=== PATIENT | male | born 1970 | race Two or more races ===

== ENCOUNTER 2018-05-31 11:45 | Observation (INO) ==
[2018-05-31] MEDS ORDERED: Acetaminophen 325 MG Tablet PO PRN (18:27)
--- NOTE | 2018-05-31 18:37 | P.HP ---
[facility] UNKNOWN Chief Complaint: Chest pain shortness of breath since History of Present Illness: Patient complains of chest pain shortness of breath fatigue dizziness since . Patient states that he is admitted to the [facility] on and kept overnight and discharged. Patient states he was seen by cardiology over there cardiac enzymes were unremarkable EKG no acute changes and was discharged. Returns today because of persistent chest pains and shortness of breath with dyspnea on exertion states he took 3 nitros without relief this morning. He has a long-standing history of coronary disease with 2 stents as well as diabetes hypertension hyperlipidemia. Denies cigarette consumption. Patient's workup in the emergency room in [place] EKG showed no acute changes, initial set cardiac enzymes unremarkable, because he was short of breath they did a d-dimer which also was unremarkable. Patient now being admitted with the continue chest pain shortness of breath symptoms now going on for days will have our cardiology service evaluate patient. Of note patient was started on metoprolol from his admission on but he has not filled it at this point. He also was given Nitropaste in the emergency room this will be continued. For now I will continue his Plavix and aspirin his Lovenox and await cardiac evaluation. Patient denies any nausea vomiting, does have a history of sleep apnea and has a CPAP machine at home. - Diagnosis (1) Acute coronary insufficiency syndrome (2) Presence of stent in coronary artery in patient with coronary artery disease Review of Systems All other systems reviewed negative except as stated in HPI [facility] - History History Provided By: Patient, Family Member - Medical History Medical History: Medical History (Last Reviewed 05/31/18 @ 18:34 by Randall Lama MD) Anxiety BPH (benign prostatic hyperplasia) CAD (coronary artery disease) Chest pain HTN (hypertension) Hyperlipidemia Kidney stones Mood disorder - Surgical History Surgical History: Surgical History (Last Reviewed 05/31/18 @ 18:34 by Randall Lama MD) History of extraction of renal calculus History of loop recorder Hx of cardiac cath Hx of heart artery stent Hx of hernia repair - Tobacco History Second Hand Smoke Exposure: No Smoking Status: Never smoker - Alcohol History How Often Do You Have a Drink Containing Alcohol: Never - Substance Use History Substance History: No History of Abuse Medications and Allergies Active Medications: Active Medications Acetaminophen (Tylenol) 650 mg PO Q4H PRN PRN Reason: Temp > 100.4 Albuterol (Ventolin Hfa Inh) 1 puff INH Q4-6H PRN PRN Reason: Shortness Of Breath Or Wheezing Aspirin (Ecotrin) 81 mg PO DAILY [facility] Clopidogrel Bisulfate (Plavix) 75 mg PO DAILY [facility] Enoxaparin Sodium (Lovenox Inj) 40 mg SQ Q24H [facility] Hydroxyzine HCl (Atarax) 10 mg PO TID-QID PRN PRN Reason: Anxiety Lamotrigine (Lamictal) 50 mg PO DAILY [facility] Lisinopril (Prinivil) 5 mg PO HS [facility] Metoprolol Tartrate (Lopressor) 25 mg PO BID [facility] Nitroglycerin (Nitrostat Sl (Override)) 0.4 mg SL Q5-15M PRN PRN Reason: Chest Pain Non-Formulary Medication (Rosuvastatin [Rosuvastatin]) 20 mg PO HS [facility] Ondansetron HCl (Zofran Inj) 4 mg IV.PUSH Q6H PRN PRN Reason: NAUSEA OR VOMITING Ranolazine (Ranexa) 1,000 mg PO BID [facility] Tamsulosin HCl (Flomax) 0.4 mg PO DAILY [facility] Trazodone HCl (Desyrel) 100 mg PO HS [facility] Allergies Allergy/AdvReac Type Severity Reaction Status Date / Time shellfish derived Allergy Swelling Verified 05/31/18 12:16 of Lip/Tongue/Throat Home Medications Medication Instructions Recorded Confirmed Type albuterol sulfate [ProAir HFA] 1 puff INHALATION Q4-6H PRN 05/31/18 05/31/18 History aspirin 81 mg PO DAILY 05/31/18 05/31/18 History clopidogrel [Plavix] 75 mg PO DAILY 05/31/18 05/31/18 History hydroxyzine HCl 10 mg PO TID-QID PRN 05/31/18 05/31/18 History lamotrigine 50 mg PO DAILY 05/31/18 05/31/18 History lisinopril 5 mg PO HS 05/31/18 05/31/18 History metoprolol tartrate 25 mg PO BID 05/31/18 05/31/18 History nitroglycerin 0.4 mg SUBLINGUAL Q5-15M PRN 05/31/18 05/31/18 History ranolazine [Ranexa] 1,000 mg PO BID 05/31/18 05/31/18 History rosuvastatin 20 mg PO HS 05/31/18 05/31/18 History tamsulosin [Flomax] 0.4 mg PO DAILY 05/31/18 05/31/18 History trazodone 100 mg PO HS 05/31/18 05/31/18 History Exam Vital signs: Vital Signs 05/31/18 15:45 Pulse Rate 60 Respiratory Rate 18 Blood Pressure 113/75 Pulse Oximetry 95 Intake & Output 05/30/18 05/31/18 05/31/18 18:59 06:59 18:59 Weight 99.79 kg Other: Weight On Admission 99.79 kg Narrative: GENERAL: SKIN: Warm and dry. HEAD: Normocephalic. EYES: No scleral icterus. No injection or drainage. NECK: Supple, trachea midline. No JVD or lymphadenopathy. CARDIOVASCULAR: Regular rate and rhythm without murmurs, gallops, or rubs. RESPIRATORY: Breath sounds equal bilaterally. No accessory muscle use. GASTROINTESTINAL: Abdomen soft, non-tender, nondistended. MUSCULOSKELETAL: No cyanosis, or edema. BACK: Nontender without obvious deformity. No CVA tenderness. Caprini VTE Risk Assessment Caprini VTE Risk Assessment: Moderate/High Risk (score >= 2) Caprini Risk Assessment Model: Point Value = 1 Point Value = 2 Point Value = 3 Point Value = 5 Age 41-60 Minor surgery BMI > 25 kg/m2 Swollen legs Varicose veins or History of unexplained or recurrent spontaneous Oral contraceptives or hormone replacement Sepsis (< 1 month) Serious lung disease, including pneumonia (< 1 month) Abnormal pulmonary function Acute myocardial infarction Congestive heart failure (< 1 month) History of inflammatory bowel disease Medical patient at bed rest Age 61-74 Arthroscopic surgery Major open surgery (> 45 min) Laparoscopic surgery (> 45 min) Malignancy Confined to bed (> 72 hours) Immobilizing plaster cast Central venous access Age >= 75 History of VTE Family history of VTE Factor V Leiden Prothrombin [id number] Lupus anticoagulant Anticardiolipin antibodies Elevated serum homocysteine Heparin-induced thrombocytopenia Other congenital or acquired thrombophilia Stroke (< 1 month) Elective arthroplasty Hip, pelvis, or leg fracture Acute spinal cord injury (< 1 month) Prophylaxis Regimen: Total Risk Factor Score Risk Level Prophylaxis Regimen 0-1 Low Early ambulation 2 Moderate Order ONE of the following: *Sequential Compression Device (SCD) *Heparin 5000 units SQ BID 3-4 Higher Order ONE of the following medications: *Heparin 5000 units SQ TID *Enoxaparin/Lovenox 40 mg SQ daily (WT < 150 kg, CrCl > 30 mL/min) *Enoxaparin/Lovenox 30 mg SQ daily (WT < 150 kg, CrCl > 10-29 mL/min) *Enoxaparin/Lovenox 30 mg SQ BID (WT < 150 kg, CrCl > 30 mL/min) AND/OR *Sequential Compression Device (SCD) 5 or more Highest Order ONE of the following medications: *Heparin 5000 units SQ TID (Preferred with Epidurals) *Enoxaparin/Lovenox 40 mg SQ daily (WT < 150 kg, CrCl > 30 mL/min) *Enoxaparin/Lovenox 30 mg SQ daily (WT < 150 kg, CrCl > 10-29 mL/min) *Enoxaparin/Lovenox 30 mg SQ BID (WT < 150 kg, CrCl > 30 mL/min) AND *Sequential Compression Device (SCD) Assessment and Plan - Assessment (1) Acute coronary insufficiency syndrome Code(s): I20.0 - Unstable angina Status: Acute Plan: Plan we will admit for chest pain shortness of breath workup cardiac consult serial troponin serial EKG (2) Presence of stent in coronary artery in patient with coronary artery disease Code(s): I25.10 - Atherosclerotic heart disease of [place] coronary artery without angina pectoris; Z95.5 - Presence of coronary angioplasty implant and graft Status: Acute Plan: Continue current medications patient states that they told him his blood pressure was a little on the low side and the other hospital follow that as well - Plan Further plan as case develops Code Status: Full Discussed Condition With: Patient and
[2018-05-31] MEDS: Enoxaparin Inj 40 MG/0.4 ML Syringe SQ SCH (19:44)
[2018-05-31] MEDS: traZODone 100 MG Tablet PO SCH (20:59)
[2018-05-31] MEDS: Senna/Docusate Sodium 8.6/50 MG Tablet PO SCH (20:59)
[2018-05-31] MEDS: Metoprolol Tartrate 25 MG Tablet PO SCH (20:59)
[2018-05-31] MEDS: Lisinopril 5 MG Tablet PO SCH (20:59)
[2018-05-31] MEDS: Ranolazine 500 MG 12HR ER Tablet PO SCH (21:00)
--- NOTE | 2018-06-01 07:37 | P.CONCA ---
History of Present Illness Primary Care Provider: UNKNOWN Chief Complaint: Chest pain shortness of breath since History of Present Illness: 47-year-old male with CAD, HTN, HLD, DM, JEFF on CPAP, recurrent syncope. Patient reports that since he has been having episodes of chest heaviness, shortness of breath, nausea, fatigue/sleeping more, dizziness and episodes of near syncope. He went to the hospital in [place] on for this reports workup was negative except he was told he was wheezing some and was discharged. Symptoms persisted so he went to the [facility] the ED. troponin 0 0.02 x 3, EKG with NSR and no ischemic changes, d-dimer within normal limits, chest x-ray with no acute process. Telemetry overnight with no significant arrhythmia noted. He reports PCI x2 in 2016. Reports normal left heart catheterization in January in [place]. He reports loop recorder placed for recurrent syncope 10/[address] Nunez. Patient reports that he "just does not feel right" and wants to know what is going on. He reports his plan is to establish with Dr. Villa with cardiology in [place], but has not seen him yet. Review of Systems All other systems reviewed negative except as stated in HPI [facility] - History History Provided By: Patient, Medical Record - Medical History Medical History: Medical History (Last Reviewed 05/31/18 @ 18:34 by Randall Lama MD) Anxiety BPH (benign prostatic hyperplasia) CAD (coronary artery disease) Chest pain HTN (hypertension) Hyperlipidemia Kidney stones Mood disorder - Surgical History Surgical History: Surgical History (Last Reviewed 05/31/18 @ 18:34 by Randall Lama MD) History of extraction of renal calculus History of loop recorder Hx of cardiac cath Hx of heart artery stent Hx of hernia repair - Tobacco History Second Hand Smoke Exposure: No Smoking Status: Never smoker - Alcohol History How Often Do You Have a Drink Containing Alcohol: Never - Substance Use History Substance History: No History of Abuse - Travel History Recent Travel in the [facility] Within the Last 8 Weeks: No Recent Travel Out of the Country Within the Last 8 Weeks: No Medications and Allergies Allergies Allergy/AdvReac Type Severity Reaction Status Date / Time shellfish derived Allergy Swelling Verified 05/31/18 12:16 of Lip/Tongue/Throat Home Medications Medication Instructions Recorded Confirmed Type albuterol sulfate [ProAir HFA] 1 puff INHALATION Q4-6H PRN 05/31/18 05/31/18 History aspirin 81 mg PO DAILY 05/31/18 05/31/18 History clopidogrel [Plavix] 75 mg PO DAILY 05/31/18 05/31/18 History hydroxyzine HCl 10 mg PO TID-QID PRN 05/31/18 05/31/18 History lamotrigine 50 mg PO DAILY 05/31/18 05/31/18 History lisinopril 5 mg PO HS 05/31/18 05/31/18 History metoprolol tartrate 25 mg PO BID 05/31/18 05/31/18 History nitroglycerin 0.4 mg SUBLINGUAL Q5-15M PRN 05/31/18 05/31/18 History ranolazine [Ranexa] 1,000 mg PO BID 05/31/18 05/31/18 History rosuvastatin 20 mg PO HS 05/31/18 05/31/18 History tamsulosin [Flomax] 0.4 mg PO DAILY 05/31/18 05/31/18 History trazodone 100 mg PO HS 05/31/18 05/31/18 History Active Medications: Active Medications Acetaminophen (Tylenol) 650 mg PO Q4H PRN PRN Reason: Temp > 100.4 Albuterol (Ventolin Hfa Inh) 1 puff INH Q4H PRN PRN Reason: Shortness Of Breath Or Wheezing Aspirin (Ecotrin) 81 mg PO DAILY [facility] Atorvastatin Calcium (Lipitor) 40 mg PO HS [facility] Last Admin: 05/31/18 20:59 Dose: 40 mg Clopidogrel Bisulfate (Plavix) 75 mg PO DAILY [facility] Enoxaparin Sodium (Lovenox Inj) 40 mg SQ Q24H [facility] Last Admin: 05/31/18 19:44 Dose: 40 mg Hydroxyzine HCl (Atarax) 10 mg PO QID PRN PRN Reason: Anxiety Lamotrigine (Lamictal) 50 mg PO DAILY [facility] Lisinopril (Prinivil) 5 mg PO HS [facility] Last Admin: 05/31/18 20:59 Dose: 5 mg Metoprolol Tartrate (Lopressor) 25 mg PO BID [facility] Last Admin: 05/31/18 20:59 Dose: 25 mg Nitroglycerin (Nitrostat Sl) 0.4 mg SL Q5M PRN PRN Reason: CHEST PAIN Last Admin: 05/31/18 19:44 Dose: 0.4 mg Nitroglycerin (Nitro-Bid 2% Oint) 1 inch TOPICAL Q6HR [facility] Last Admin: 06/01/18 06:51 Dose: 1 inch Ondansetron HCl (Zofran Inj) 4 mg IV.PUSH Q6H PRN PRN Reason: NAUSEA OR VOMITING Ranolazine (Ranexa) 1,000 mg PO BID [facility] Last Admin: 05/31/18 21:00 Dose: 1,000 mg Senna/Docusate Sodium (Cheryl-Colace) 1 tab PO BID [facility] Last Admin: 05/31/18 20:59 Dose: 1 tab Sodium Chloride (Ns Flush) 2 ml IV.FLUSH BID [facility] Last Admin: 05/31/18 20:59 Dose: 2 ml Sodium Chloride (Ns Flush) 2 ml IV.FLUSH PRN PRN PRN Reason: FLUSH AFTER USING IV ACCESS Tamsulosin HCl (Flomax) 0.4 mg PO DAILY [facility] Trazodone HCl (Desyrel) 100 mg PO HS [facility] Last Admin: 05/31/18 20:59 Dose: 100 mg Exam Vital signs: Vital Signs 05/31/18 15:45 05/31/18 18:35 05/31/18 20:00 Temperature 97.5 F L Pulse Rate 60 71 68 Respiratory Rate 18 12 Blood Pressure 113/75 96/61 L Pulse Oximetry 95 96 05/31/18 23:18 06/01/18 04:30 06/01/18 07:18 Temperature 97.6 F 97.7 F 97.6 F Pulse Rate 58 L 57 L 66 Respiratory Rate 16 18 16 Blood Pressure 99/54 L 115/65 109/66 Pulse Oximetry 98 98 97 Intake & Output 05/31/18 06/01/18 06/01/18 18:59 06:59 18:59 Output Total 350 / 350 Balance -350 / -350 Weight 220 lb Output: Urine 350 / 350 Other: Date of Last Bowel Movement 05/31/18 Weight On Admission 220 lb Narrative: GENERAL: Well-developed well-nourished. In no acute distress. NECK: No carotid bruits. No JVD. CARDIOVASCULAR: Regular rate and rhythm. No murmur appreciated. RESPIRATORY: No accessory muscle use. Clear to auscultation. Breath sounds equal bilaterally. MUSCULOSKELETAL: No clubbing or cyanosis. No edema. NEUROLOGICAL: Awake and alert. Normal speech. Results Cardiac Enzymes 05/31/18 06/01/18 Range/Units 19:39 02:40 Troponin I Less than 0.02 L Less than 0.02 L (0.02-0.05) ng/mL Intake and Output 05/31/18 06/01/18 06/01/18 22:59 06:59 14:59 Output Total 350 / 350 Balance -350 / -350 Output: Urine 350 / 350 Other: Date of Last Bowel Movement 05/31/18 Weight 220 lb Weight On Admission 220 lb Assessment and Plan - Plan 47-year-old male with CAD, HTN, HLD, DM, JEFF on CPAP, recurrent syncope. Patient reports that since he has been having episodes of chest heaviness, shortness of breath, nausea, fatigue/sleeping more, dizziness and episodes of near syncope Atypical chest pain with history of CAD: EKG and troponins with no ischemic changes. Reportedly recent normal LHC. Check Lexiscan to evaluate for any significant ischemia. Continue aspirin, Plavix. Near syncope: We will have [employer] interrogate loop recorder. Check updated echo. Discussed Condition With: Patient, RN, hospitalist, Dr. Rivera - Attending Attestation stress test personally reviewed. Appears to be low risk study guideline directed medical therapy DC home FU PCP
[2018-06-01] MEDS ORDERED: Regadenoson Inj 0.4 MG/5 ML Syringe IV.PUSH ONE (07:38)
[2018-06-01] MEDS: Senna/Docusate Sodium 8.6/50 MG Tablet PO SCH ×2 (08:04→23:58)
[2018-06-01] MEDS: Ranolazine 500 MG 12HR ER Tablet PO SCH ×2 (08:04→23:59)
[2018-06-01] MEDS: lamoTRIgine 25 MG TABLET PO SCH (08:05)
--- NOTE | 2018-06-01 08:16 | P.PNIM ---
Subjective Interval history: Patient denies any chest pain currently but states that he did have some overnight He reports that he has had increased lethargy, intermittent chest pain, dyspnea , dizziness and just "not feeling right" for the last 6 days. He states that he has JEFF and has been on CPAP for the last year, no other health related changes. He reports that he was prescribed Metoprolol last week when he was in the hospital in [place] but had not started taking it prior to this admission. Pt denies any palpitations or diaphoresis, but has had nausea intermittently as well. He feels that the symptoms are somewhat similar to symptoms he had prior to his cardiac cath and stent placement in 2017 Physical Exam Vital signs: Last Vital Signs Temp 97.6 F 06/01/18 07:18 Pulse 66 06/01/18 07:18 Resp 16 06/01/18 07:18 BP 109/66 06/01/18 07:18 Pulse Ox 97 06/01/18 07:18 Narrative: General: NAD, AAOx3 Chest: CTA Cardiac: Regular Abd: +BS, soft ND/NT Ext: No edema Assessment and Plan Assessment (1) Atypical chest pain: Code(s): R07.89 - Other chest pain Status: Acute (2) Dizziness: Code(s): R42 - Dizziness and giddiness Status: Acute (3) JEFF (obstructive sleep apnea): Code(s): G47.33 - Obstructive sleep apnea (adult) (pediatric) Status: Chronic (4) Anxiety: Code(s): F41.9 - Anxiety disorder, unspecified Status: Chronic (5) Presence of stent in coronary artery in patient with coronary artery disease : Code(s): I25.10 - Atherosclerotic heart disease of [place] coronary artery without angina pectoris; Z95.5 - Presence of coronary angioplasty implant and graft Status: Chronic Plan Atypical chest pain Hx of CAD s/p stent in 2017 - Pt is a 47 y/o male with CAD, HTN, HLD, JEFF on CPAP, and recurrent syncope/ near syncope. He presented to the ED at [place] on 05/31/18 with complaints of having episodes of chest heaviness, shortness of breath, nausea, fatigue/ sleeping more, dizziness and episodes of near syncope since 05/28/18. He went to the hospital in [place] on 05/28/18 with these complaints and the workup was reportedly negative except he was told he was wheezing some and was discharged. He was prescribed Metoprolol 25mg daily at that time but has not started taking that yet. Symptoms persisted so he went to the [place] ED on 05/31 and was transferred to [facility] for further cardiac workup. - Pt previously had LHC with PCI x2 in 2016 and he had a LHC in 08/2017 which at that time noted moderately severe left ventricular diastolic dysfunction, EF 40- 45%, widely patent stents in the LAD with minimal residual narrowing. The Left main, circumflex, and RCA are free of significant disease. - Reviewed 2D echo (01/06/2018) which noted estimated EF 60-65% and diastolic dysfunction. - He also has a loop recorder which was reportedly placed for recurrent syncope 10/[address] Nunez. - Troponin I 0.02 x 3, EKG with NSR and no ischemic changes, d-dimer within normal limits, chest x-ray with no acute process. - Telemetry overnight with no significant arrhythmia noted. - Cardiology is following. - Pt is planned for Lexiscan today - Nitro paste Q6H - Hold Metoprolol for now as BP is low normal and this was a new medication added to his regiment recently - Cont. ASA/Plavix/Statin/RENA/Ranexa - Supportive care - DVT prophylaxis with Lovenox Dizziness Hx of recurrent syncope/near syncope - Pt had loop recorder placed in 10/2017 for recurrent syncopal episodes - Interrogation of loop recorder is ordered - 2D echo was reviewed JEFF on CPAP - Pt reportedly diagnosed with JEFF about 1 year ago - He uses his CPAP daily per the pt - Cont. this while at the hospital Diet controlled DM - Diabetic diet - Hgb A1C 5.8% Anxiety - Cont. home meds ADDENDUM: - Lexiscan was reviewed by Cardiology and felt to be a low risk study - Loop recorder interrogated and there were no noted events - Pt still having dizziness and low BP - Stop the Nitro paste - Parameters on the Metoprolol - Monitor today and if BP is stable and symptoms improve anticipate d/c home in AM Attending Attestation The exam, history, and the medical decision-making described in the above note were completed with the assistance of the mid-level provider. I reviewed and agree with the findings presented. I attest that I had a [id number] encounter with the patient on the same day, and personally performed and documented my assessment and findings in the medical record. Patient examined. Assessment and plan formulated with Heidy Tejada PA-C. I agree with the above. Progress Note: Quality VTE Deep Vein Thrombosis/Pulmonary Embolism Present on Admission: No
--- NOTE | 2018-06-01 09:54 | NM ---
EXAM DATE: 06/01/2018 9:46 AM EST AGE/SEX: 47 years / Male INDICATIONS:Angina. Coronary artery disease Substernal chest pain. CLINICAL DATA: This is the patient's initial encounter. Patient reports that signs and symptoms have been present for 1 day and indicates a pain score of 4/10. MEDICAL/SURGICAL HISTORY: Hypertension. Coronary artery stent. Loop recorder. COMPARISON: . DOSE: 11 mCi Tc 99m Myoview at rest 35 mCi [id number] at stress 0.4 mg Lexiscan STRESS SYMPTOMS: Dyspnea, nausea and headache. EJECTION FRACTION: 57 % TECHNIQUE: The patient underwent pharmacologic stress with infusion of prescribed dose. Continuous ECG tracing was monitored during stress. Gated SPECT imaging was performed after stress and conventi onal SPECT imaging was performed at rest. The examination was performed on a SPECT/CT scanner, both attenuation and non-corrected datasets were reviewed. FINDINGS: Distribution: The maximum perfused segment at stress is in the lateral wall. Perfusion Study: There is mild decreased activity seen in the mid septal and inferior wall and at t he basilar anterior wall on the stress images compared to the rest images. Gated Study: There are intact wall motion and wall thickening without hypokinetic or dyskinetic segm ents. The ejection fraction is calculated at 57%. RISK CATEGORY: Intermediate (1-3 % Annual Mortality Rate) CONCLUSION: Possible mild ischemia in the mid septal and inferior ambrose and basilar anterior wall. Electronically signed by: Sonu Mays MD Board Certified Radiologist 06/01/2018 9:53 AM EST
[2018-06-01] MEDS: Metoprolol Tartrate 25 MG Tablet PO SCH ×4 (10:07→23:58)
--- NOTE | 2018-06-01 12:11 | ECG ---
Date Performed: 05/31/2018 Time Performed: 16:13:27 PTAGE: 47 years EKG: SINUS BRADYCARDIA BORDERLINE ECG NO PREVIOUS TRACING DOCTOR: Clinton Suárez Interpretating Date/Time 06/01/2018 12:09:11
--- NOTE | 2018-06-01 12:22 | ECG ---
Date Performed: 06/01/2018 Time Performed: 04:28:57 PTAGE: 47 years EKG: SINUS BRADYCARDIA BORDERLINE ECG Since the PREVIOUS TRACING , no significant change noted PREVIOUS TRACIN05/31/2018 18.39 DOCTOR: Clinton Suárez Interpretating Date/Time 06/01/2018 12:15:52
--- NOTE | 2018-06-01 12:22 | ECG ---
Date Performed: 05/31/2018 Time Performed: 18:39:59 PTAGE: 47 years EKG: Sinus rhythm NORMAL ECG Since the PREVIOUS TRACING , no significant change noted PREVIOUS TRACIN05/31/2018 16.13 DOCTOR: Clinton Suárez Interpretating Date/Time 06/08/2018 18:23:13
[2018-06-01 16:51] LABS: Free T4 (Free Thyroxine) 0.85 ng/dL (0.76-1.46); Thyroid Stimulating Hormone 0.682 uIU/mL (0.358-3.740)
--- NOTE | 2018-06-01 17:35 | ECHRPT ---
Indication: Syncope CONCLUSIONS The left ventricular systolic function is low normal with an estimated ejection fraction in the rang e of 50- 55%. Trace mitral valve regurgitation. There is mild tricuspid valve regurgitation. BP: / HR: Rhythm: MEASUREMENTS (Male / Female) Normal Values Technical Quality:Fair 2D ECHO LV Diastolic Diameter PLAX 4.4 cm 4.2 - 5.9 / 3.9 - 5.3 cm LV Systolic Diameter PLAX 2.8 cm IVS Diastolic Thickness 0.9 cm 0.6 - 1.0 / 0.6 - 0.9 cm LVPW Diastolic Thickness 0.9 cm 0.6 - 1.0 / 0.6 - 0.9 cm LV Relative Wall Thickness 0.4 RV Internal Dim ED PLAX 3.5 cm LVOT Diameter 2.1 cm Aortic Root Diameter 2.8 cm LA Systolic Diameter LX 3.8 cm 3.0 - 4.0 / 2.7 - 3.8 cm DOPPLER AV Peak Velocity 92.1 cm/s AV Peak Gradient 3.4 mmHg LVOT Peak Velocity 74.5 cm/s LVOT Peak Gradient 2.2 mmHg AV Area Cont Eq pk 2.8 cm Mitral E Point Velocity 49.4 cm/s Mitral A Point Velocity 44.4 cm/s Mitral E to A Ratio 1.1 LV E' Lateral Velocity 13.0 cm/s Mitral E to LV E' Lateral Ratio 3.8 LV E' Septal Velocity 6.4 cm/s Mitral E to LV E' Septal Ratio 7.7 TR Peak Velocity 207.0 cm/s TR Peak Gradient 17.1 mmHg Right Atrial Pressure 10.0 mmHg Pulmonary Artery Systolic Pressu 27.1 mmHg Right Ventricular Systolic Press 27.1 mmHg PV Peak Velocity 86.9 cm/s PV Peak Gradient 3.0 mmHg FINDINGS LEFT VENTRICLE Normal left ventricular size. Wall thickness is normal. The left ventricular systolic function is low normal with an estimated ejection fraction in the rang e of 50- 55%. RIGHT VENTRICLE Normal right ventricular size and systolic function. LEFT ATRIUM The left atrial size is normal. RIGHT ATRIUM The right atrial size is normal. ATRIAL SEPTUM Normal atrial septal thickness without atrial level shunting by limited color doppler interrogation. AORTA The aortic root and proximal ascending aorta are normal in size on limited imaging. MITRAL VALVE Structurally normal mitral valve. Trace mitral valve regurgitation. No mitral valve stenosis. AORTIC VALVE Trileaflet aortic valve. No aortic valve stenosis or regurgitation. TRICUSPID VALVE Structurally normal tricuspid valve. There is mild tricuspid valve regurgitation. The estimated pulmonary arterial pressure is 27 mmHg. PULMONARY VALVE No pulmonary valve regurgitation or stenosis. VESSELS The inferior vena cava is normal in size. PERICARDIUM No pericardial effusion. Ad Salinas DO (Electronically Signed) Final Date:01 June 2018 17:34
[2018-06-01] MEDS: Enoxaparin Inj 40 MG/0.4 ML Syringe SQ SCH (23:12)
[2018-06-01] MEDS: traZODone 100 MG Tablet PO SCH (23:14)
[2018-06-01] MEDS: Lisinopril 5 MG Tablet PO SCH (23:58)
[2018-06-02] MEDS: lamoTRIgine 25 MG TABLET PO SCH (09:07)
[2018-06-02] MEDS: Metoprolol Tartrate 25 MG Tablet PO SCH (09:07)
[2018-06-02] MEDS: Ranolazine 500 MG 12HR ER Tablet PO SCH (09:07)
[2018-06-02] MEDS: Senna/Docusate Sodium 8.6/50 MG Tablet PO SCH (09:08)
--- NOTE | 2018-06-02 09:35 | P.PNIM ---
Subjective Interval history: Pt reports that he is feeling better today No further dizziness He slept better last night using oxygen at night He reports that he does use his CPAP at home but that he is bothered by it because it is not comfortable for him Physical Exam Vital signs: Last Vital Signs Temp 97.7 F 06/02/18 07:44 Pulse 60 06/02/18 07:44 Resp 18 06/02/18 07:44 BP 121/77 06/02/18 07:44 Pulse Ox 98 06/01/18 16:07 Narrative: General: NAD, AAOx3 Chest: CTA Cardiac: Regular Abd: +BS, soft ND/NT Ext: No edema Assessment and Plan Assessment (1) Atypical chest pain: Code(s): R07.89 - Other chest pain Status: Acute (2) Dizziness: Code(s): R42 - Dizziness and giddiness Status: Acute (3) JEFF (obstructive sleep apnea): Code(s): G47.33 - Obstructive sleep apnea (adult) (pediatric) Status: Chronic (4) Anxiety: Code(s): F41.9 - Anxiety disorder, unspecified Status: Chronic (5) Presence of stent in coronary artery in patient with coronary artery disease : Code(s): I25.10 - Atherosclerotic heart disease of [place] coronary artery without angina pectoris; Z95.5 - Presence of coronary angioplasty implant and graft Status: Chronic Plan Atypical chest pain Hx of CAD s/p stent in 2017 - Pt is a 47 y/o male with CAD, HTN, HLD, JEFF on CPAP, and recurrent syncope/ near syncope. He presented to the ED at [place] on 05/31/18 with complaints of having episodes of chest heaviness, shortness of breath, nausea, fatigue/ sleeping more, dizziness and episodes of near syncope since 05/28/18. He went to the hospital in [place] on 05/28/18 with these complaints and the workup was reportedly negative except he was told he was wheezing some and was discharged. He was prescribed Metoprolol 25mg daily at that time but has not started taking that yet. Symptoms persisted so he went to the [place] ED on 05/31 and was transferred to [facility] for further cardiac workup. - Pt previously had LHC with PCI x2 in 2016 and he had a LHC in 08/2017 which at that time noted moderately severe left ventricular diastolic dysfunction, EF 40- 45%, widely patent stents in the LAD with minimal residual narrowing. The Left main, circumflex, and RCA are free of significant disease. - Reviewed 2D echo (01/06/2018) which noted estimated EF 60-65% and diastolic dysfunction. - He also has a loop recorder which was reportedly placed for recurrent syncope 10/[address] Nunez. - Troponin I 0.02 x 3, EKG with NSR and no ischemic changes, d-dimer within normal limits, chest x-ray with no acute process. - Telemetry overnight with no significant arrhythmia noted. - Cardiology is following. - Pt Lexiscan on 06/01/18. The Lexiscan was reviewed by Cardiology and felt to be a low risk study - Loop recorder interrogated and there were no noted events - Pt was having dizziness and low BP on 06/01 so the Nitro paste was stopped and the Metoprolol was decreased to 12.5mg BID, with parameters on the Metoprolol - BP is more stable today but pt did not receive the Metoprolol last night. He did receive it this morning. - Asked the pt to ambulate around the unit this morning to ensure no further dizziness. - Monitor today and if BP is stable and symptoms improve anticipate d/c home in AM - Cont. ASA/Plavix/Statin/RENA/Ranexa - Supportive care - DVT prophylaxis with Lovenox Dizziness Hx of recurrent syncope/near syncope - Pt had loop recorder placed in 10/2017 for recurrent syncopal episodes - Interrogation of loop recorder with no events noted - 2D echo was reviewed JEFF on CPAP - Pt reportedly diagnosed with JEFF about 1 year ago - He uses his CPAP daily per the pt - Pt should followup with Dr. Godoy as an outpt for repeat sleep study and possibly evaluation for a different mask as he has had issues tolerating his current mask Diet controlled DM - Diabetic diet - Hgb A1C 5.8% Anxiety - Cont. home meds Attending Attestation The exam, history, and the medical decision-making described in the above note were completed with the assistance of the mid-level provider. I reviewed and agree with the findings presented. I attest that I had a [id number] encounter with the patient on the same day, and personally performed and documented my assessment and findings in the medical record. Patient examined. Assessment and plan formulated with Heidy Mallory PA-C. I agree with the above. Progress Note: Quality VTE Deep Vein Thrombosis/Pulmonary Embolism Present on Admission: No
[2018-06-02 11:33] VITALS: BP 111/56; PULSE 65; RESP 20; TEMP 97.8; O2SAT 95
== END 2018-06-02 14:54 | disposition home or self-care (01) ==
LOC: NEPFCDU 11:45 → NEDDLT 11:45
PROVIDERS: ADMIT Hospitalist; ATTEND Hospitalist
DX: Z79.899 Other long term (current) drug therapy; Z79.82 Long term (current) use of aspirin; E78.5 Hyperlipidemia, unspecified; F41.9 Anxiety disorder, unspecified; I07.1 Rheumatic tricuspid insufficiency; Z79.02 Long term (current) use of antithrombotics/antiplatelets; E11.9 Type 2 diabetes mellitus without complications; G47.33 Obstructive sleep apnea (adult) (pediatric); I10 Essential (primary) hypertension; Z95.5 Presence of coronary angioplasty implant and graft; N40.0 Benign prostatic hyperplasia without lower urinary tract symptoms; I25.110 Atherosclerotic heart disease of native coronary artery with unstable angina pectoris
CPT/HCPCS: 71010; 71045; 78452; 80053; 82550; 82552; 83520; 83735; 83880; 84439; 84443; 84484; 85025; 85379; 90774; 90784; 93005; 93017; 93306; 96372; 96374; 99291; A9502; C8952; G0378; J1650; J2270; J2785